=== PATIENT | male | born 1985 | race Caucasian/White ===

== ENCOUNTER 2024-07-03 13:17 | Emergency (ER) | payer OTHER, SELFPAY ==
[2024-07-03 13:29] VITALS: BP 163/92
[2024-07-03 13:43] LABS: % Basophils 0.4 % (0-2); % Eosinophils 0.1 % (0-6); % Immature Granulocytes 0.5 % (0-0.5); % Lymphocytes 20.6 % (20.5-51.1); % Neutrophils 69.4 % (42.2-75.2); Absolute Lymphocytes 1.8 10^3/uL (1.2-3.4); Absolute Monocytes 0.8 10^3/uL (0.1-0.6); Absolute Neutrophils 5.9 10^3/uL (1.4-6.5); Hematocrit 44.2 % (39.0-52.0); Hemoglobin 15.8 g/dL (13.0-18.0); Mean Corp Hgb Conc. 35.7 g/dL (33.0-37.0); Mean Corpuscular Hgb 31.3 pg (27.0-31.0); Mean Corpuscular Volume 87.5 fL (80.0-94.0); Nucleated Red Blood Cells % 0 % (-); Platelet Count 344 10^3/uL (130-400); Red Blood Cell Count 5.05 10^6/uL (4.70-6.10); Red Cell Dist. Width 12.4 % (11.5-14.5); White Blood Cell Count 8.5 10^3/uL (4.8-10.8)
[2024-07-03 13:55] LABS: ALT (SGPT) 21 U/L (0-50); AST (SGOT) 28 U/L (17-59); Albumin 4.9 g/dl (3.5-5.0); Alkaline Phosphatase 59 U/L (38-126); Blood Urea Nitrogen 17 mg/dl (9-20); Calcium 9.8 mg/dl (8.4-10.2); Carbon Dioxide 25 mmol/L (22-30); Chloride 100 mmol/L (98-107); Glucose 106 mg/dl (70-99); Potassium 3.6 mmol/L (3.5-5.1); Sodium 138 mmol/L (135-145); Total Bilirubin 1.3 mg/dl (0.2-1.3); eGFR > 60.00
[2024-07-03 14:07] LABS: Troponin I < 0.012 ng/ml
[2024-07-03 15:10] VITALS: BP 143/115
[2024-07-03 15:12] VITALS: BP 138/109
[2024-07-03 15:14] VITALS: BMI 28.8
[2024-07-03 16:00] VITALS: BP 129/99
[2024-07-03] MEDS: ATIVAN 1 MG PO (16:03)
--- NOTE | 2024-07-03 17:20 | ED.GENMED ---
History of Present Illness
General
Chief Complaint: Chest Pain
Source: patient
Exam Limitations: none
Time Seen by Provider: 07/03/24 15:12
Nursing documentation reviewed up to this point in time: agreed with
History of Present Illness
History of Present Illness:
38 y/o M
borderline cholesterol, no meds
here with days of intermittent central chest discomfor 09/16 feeling like heart burn during periods of stress
pt actually is under extreme stress after finding out 5 days ago that his stole 30k from [employer] and was arrested; turns out she has had years of creating fake accounts and stealing funds which was just discovered in hte past few days
he has 3 kids and is feeling overwhelemd
he has hd this chest pain that has been minimal
today around 10 am he got significantly upset says he felt like his legs were heavy, he walked into the other room and then got overwhelemd and smashed a photo over his knee
he didn' thit anyone or threaten anyone
he is calm and cooperative here
he wants to have evaluation of his BP becuase he feels that the stress has mad eit high
he has no fhx of cad
non smoker
no previous issues with his heart or bp
no chest pain through to the back
he feels minimal pain now
Past History
Past History
ED Past Medical History: None
ED Past Surgical History: None
Social History
Tobacco: Non-smoker
Alcohol: Occasional
Personal:
Living: with family
Review of Systems
Review of Systems
Allergies reviewed?: Yes
All Other Systems: Not applicable
Phy Exam
Physical Exam
Physical Exam:
GENERAL: Alert , in no apparent distress
EYE: pupils equal and reactive
NECK: Supple
ENT: o/p clr, mmm.
CARDIAC: Regular rate and rhythm .no edema, no murmur
LUNGS: Clear breath sounds bilaterally, no acute respiratory distress, no wheezes/rales/rhonchi
ABDOMEN: Soft, without focal tenderness, no r/g, no cvat, normal bowel sounds
NEUROLOGICAL: Alert and oriented, no focal neuro deficits
SKIN: Warm and dry, skin intact.
MUSCULOSKELETAL: No edema, well perfused. neg umu's sign
PSYCH: Normal and appropriate interaction.
Course
Orders/Labs/Results
Orders:
Orders
07/03/24 13:18
Electrocardiogram (*1) Urgent
Reason for Study: Chest Pain
EKG- Treatment ONCE
07/03/24 13:37
Complete Blood Count/With Diff Urgent
Comprehensive Metabolic Panel Urgent
NT-proBNP Urgent
Comment: ADD ON
TSH Reflex To Free T4 Urgent
Comment: ADD ON
Troponin I Urgent
07/03/24 15:51
Add On- LAB Urgent
Tests Added?: BNP, tsh free t4
Crisis Consult Urgent
Reason for Consult: stress, anxiety, depression
Lorazepam [Ativan] 1 mg PO NOW STA
CR Chest - 2 Views Urgent
Comment:
Reason For Exam: chest pain
07/03/24 15:53
Lorazepam [Ativan] 1 mg .ROUTE .STK-MED ONE
Abnormal Lab Results
07/03/24
13:37
MCH 31.3 H pg
(27.0-31.0)
Absolute Monos (auto) 0.8 H 10^3/uL
(0.1-0.6)
Glucose 106 H mg/dl
(70-99)
07/03/24 13:37
07/03/24 13:37
Vital Signs
Initial and Last Documented VS:
Initial Vital Signs
Temp Pulse Resp BP Pulse Ox
36.7 C 109 18 163/92 98
07/03/24 13:29 07/03/24 13:29 07/03/24 13:29 07/03/24 13:29 07/03/24 13:29
Last Documented Vital Signs
Temp Pulse Resp BP Pulse Ox
37.2 C 93 14 129/99 93
07/03/24 15:10 07/03/24 16:00 07/03/24 16:00 07/03/24 16:00 07/03/24 16:00
ED Attending Note
-
Portions of this chart may have been created with voice recognition software.� Occasional wrong word or��sound alike� substitutions may have occurred due to the inherent limitations of voice recognition software.
Discharge Plan
Departure
Condition: Fair
Covid-19: Not Applicable
Discharge Problem:
Stress, Elevated blood pressure reading, Chest pain
Instructions: Chest Pain PCP Follow Up, BLOOD PRESSURE
Prescriptions:
No Action
ibuprofen 600 mg tablet
600 mg PO Q6H PRN (Reason: Pain) Qty: 20 0RF
hydrocodone-acetaminophen 5-325 mg tablet
1 tab PO Q8H PRN (Reason: Pain) Qty: 10 0RF
tamsulosin [Flomax] 0.4 mg capsule
0.4 mg PO DAILY Qty: 10 0RF
Referrals:
NONE,* [Family Provider] -
Activity Restrictions/Additional Instructions:
YOUR BLOOD PRESSURE IMPROVED
YOU PROBABLY ARE HAVING STRESS INDUCED HYPERTENSION
FOR NOW WE SHOULD HOLD OFF ON MEDICATIONS
SEE YOUR DOCTOR FOR FOLLOW UP THIS WEEK, ESPECIALLY TO FOLLOW UP THE CHES TPAIN
YOU MAY NEED TO BE ON SOME ANXIETY MEDICATION WELL, OR SPEAK WITH A THERAPIST TO HELP NAVIGATE THROUGH THIS
RETURN FOR ANY CONCERNSL
Interventions
Interventions:
*Risk Screen - Suicide Last Done: 07/03/24 13:31
*General Assessment Last Done: 07/03/24 13:31
*Neglect/Abuse Screening Last Done: 07/03/24 13:31
ED- Fall Risk Assessment Last Done: 07/03/24 15:10
*ED COVID-19 Vaccine History Last Done: 07/03/24 13:31
ED- Cardiac Assessment Last Done: 07/03/24 15:10
Discharge Date and Time
Print Language: GUINEAN
[2024-07-03 17:23] LABS: NT-proBNP < 20.0 pg/ml
[2024-07-03 17:29] VITALS: BP 119/82
[2024-07-03 17:46] LABS: TSH Reflex To Free T4 2.08 uIU/ml (0.47-4.68)
== END 2024-07-03 17:54 | disposition home or self-care (01) ==
LOC: EMR 13:17
PROVIDERS: EMERGENCY PHYSICIAN Emergency Medicine
DX: F43.9 Reaction to severe stress, unspecified (principal); R03.0 Elevated blood-pressure reading, without diagnosis of hypertension; R07.89 Other chest pain
CPT/HCPCS: 99283; 71046; 80053; 83880; 84443; 84484; 85025; 93005